=== PATIENT | male | born 1975 | race African-American/Black ===

== ENCOUNTER 2019-12-22 10:09 | Outpatient (REF) | payer OTHER, SELFPAY ==
--- NOTE | 2019-12-22 11:48 | ECG_ITS ---
Test Reason : MORBID OBESITY Blood Pressure : / mmHG Vent. Rate : 066 BPM Atrial Rate : 066 BPM P-R Int : 160 ms QRS Dur : 102 ms QT Int : 406 ms P-R-T Axes : 063 022 029 degrees QTc Int : 425 ms Normal sinus rhythm Normal ECG No previous ECGs available Referred By: Nicolas Gusman Electronically Signed By:JCARLOS LEDEZMA MD
--- NOTE | 2019-12-22 12:02 | XR_ITS ---
EXAMINATION: XR CHEST CLINICAL INFORMATION: AEP positive COMPARISON: None TECHNIQUE: 2 views of the chest were obtained. FINDINGS: Lung volumes are slightly diminished on the frontal radiograph but no focal consolidation or mass is seen. The lateral view is limited, particularly to evaluate the lower lobes because the patient's arm remained at his side. Normal pulmonary vascularity. Normal heart size. No pleural effusion or pneumothorax. Regional skeleton intact. XR/XR chest 2V IMPRESSION: Limited study but no evidence of acute pulmonary disease.
[2019-12-22 12:27] LABS: MANUAL DIFF FLAG NO
[2019-12-22 12:43] LABS: Basophils Absolute Auto 0.1 X10*3/uL (0.0-0.2); Basophils Percent Auto 0.7 % (0-2); Eosinophils Absolute Auto 0.2 X10*3/uL (0.0-0.4); Eosinophils Percent Auto 2.2 % (0-4); Hematocrit 34.6 % (42-52); Imm Gran Abs Auto 0.03 X10*3/uL (0.00-0.03); Imm Gran Pct Auto 0.3 % (0.0-0.4); Lymphocytes Absolute Auto 2.9 X10*3/uL (1.2-4.9); Lymphocytes Percent Auto 31.6 % (20-40); Mean Corpuscular HGB Conc 31.8 g/dl (31.0-36.0); Mean Corpuscular Hemoglobin 26.4 pg (27.0-33.0); Mean Platelet Volume 11.4 fL (9.4-12.4); Monocytes Absolute Auto 0.7 X10*3/uL (0.1-1.2); Monocytes Percent Auto 7.7 % (2-11); Neutrophils Absolute Auto 5.2 X10*3/uL (2.0-8.3); Neutrophils Percent Auto 57.5 % (45-73); Platelet Count 236 X10*3/uL (160-400); Red Blood Count 4.17 X10*6/uL (4.60-5.80); Red Cell Distribution Width 13.4 % (11.0-16.0); White Blood Count 9.1 X10*3/uL (4.8-10.8)
[2019-12-22 13:11] LABS: Alanine Aminotransferase 16 U/L (0-40); Albumin Level 3.8 g/dL (3.5-5.0); Alkaline Phosphatase 87 U/L (39-117); Anion Gap 11 (12-20); Aspartate Amino Transferase 13 U/L (5-37); Bilirubin Total 0.5 mg/dL (0.0-1.0); Blood Urea Nitrogen 13 mg/dL (9-16); C Reactive Protein 1.57 mg/dL (< or = 0.50); Calcium 9.1 mg/dL (8.4-10.2); Carbon Dioxide 33 mmol/L (22-29); Chloride 101 mmol/L (96-108); Cholesterol 110 mg/dL; Estimated Glomerular Filt Rate > 60; Glucose Random 146 mg/dL (60-115); HDL Cholesterol 41 mg/dL; LDL Cholesterol Calculated 51 mg/dl; Potassium 4.5 mmol/l (3.3-5.1); Sodium 140 mmol/L (135-145); Triglycerides 92 mg/dL
[2019-12-22 13:15] LABS: Estimated Average Glucose 163 mg/dL; Hemoglobin A1c % 7.3 %
[2019-12-22 13:36] LABS: Ferritin 174 ng/mL (20-250); TSH reflex Free T4 1.23 mIU/mL (0.32-4.0)
[2019-12-22 13:37] LABS: Folate 11.9 ng/mL (> or = 4.0); Vitamin B12 193 pg/mL (200-900)
[2019-12-23 14:42] LABS: H Pylori Breath Test NOT DETECTED (NOT DETECTED)
[2019-12-24 11:12] LABS: Insulin Level Total 8.4 uIU/mL
[2019-12-25 16:17] LABS: Zinc 77 mcg/dL (60-130)
[2019-12-26 13:12] LABS: Vitamin B1 9 nmol/L (8-30)
[2019-12-28 19:09] LABS: Vitamin A 55 mcg/dL (38-98)
== END 2019-12-22 10:10 | disposition home or self-care (01) ==
LOC: HO.LAB 10:09
PROVIDERS: PCP Internal Medicine; Referring Provider Surgery; Visit Provider Physician Assistant
DX: Z01.818 Encounter for other preprocedural examination (principal); E66.01 Morbid (severe) obesity due to excess calories; Z11.0 Encounter for screening for intestinal infectious diseases
CPT/HCPCS: 36415; 71046; 80053; 80061; 82607; 82728; 82746; 83013; 83036; 83525; 84425; 84443; 84590; 84630; 85025; 86140; 93005; 99211

== ENCOUNTER → 2020-01-06 08:06 | Outpatient (BNVA) | payer OTHER, SELFPAY | PROVIDERS: PCP Internal Medicine; Referring Provider Internal Medicine; Visit Provider Surgery | DX: E66.01 Morbid (severe) obesity due to excess calories (principal); Z68.41 Body mass index [BMI] 40.0-44.9, adult; K21.9 Gastro-esophageal reflux disease without esophagitis; E11.9 Type 2 diabetes mellitus without complications | CPT/HCPCS: Q3014 ==

== ENCOUNTER → 2020-01-11 07:34 | Outpatient (BNVA) | payer OTHER, SELFPAY | PROVIDERS: PCP Internal Medicine; Referring Provider Internal Medicine; Visit Provider Dietitian, Registered | DX: Z76.89 Persons encountering health services in other specified circumstances (principal) ==

== ENCOUNTER → 2020-02-01 08:20 | Outpatient (BNVA) | payer OTHER, SELFPAY | PROVIDERS: PCP Internal Medicine; Referring Provider Internal Medicine; Visit Provider Surgery | DX: E66.9 Obesity, unspecified (principal); Z68.38 Body mass index [BMI] 38.0-38.9, adult | CPT/HCPCS: Q3014 ==

== ENCOUNTER → 2020-02-02 11:17 | Outpatient (BNVA) | payer OTHER, SELFPAY | PROVIDERS: PCP Internal Medicine; Visit Provider Physician Assistant | DX: Z76.89 Persons encountering health services in other specified circumstances (principal) ==

== ENCOUNTER 2020-02-09 09:20 | Outpatient (REF) | payer OTHER, SELFPAY | END 2020-02-09 09:21 | disposition home or self-care (01) | LOC: HO.US 09:20 | PROVIDERS: Visit Provider Surgery | DX: Z13.89 Encounter for screening for other disorder (principal) ==

== ENCOUNTER → 2020-02-10 08:24 | Outpatient (BNVA) | payer OTHER, SELFPAY | PROVIDERS: PCP Internal Medicine; Visit Provider Dietitian, Registered | DX: Z76.89 Persons encountering health services in other specified circumstances (principal) ==

== ENCOUNTER 2020-02-24 08:49 | Outpatient (REF) | payer OTHER, SELFPAY ==
--- NOTE | 2020-02-24 08:51 | US_ITS ---
EXAMINATION: US COMPLETE ABDOMEN WITH LIVER ELASTOGRAPHY CLINICAL INFORMATION: Bariatric service evaluation. E66.01 COMPARISON: None. TECHNIQUE: Real-time imaging of the abdominal viscera. Noninvasive ultrasound liver fibrosis assessment is performed using Kiya ElastPQ point quantification shear wave elastography (pSWE) with a 5 MHz transducer. Multiple elastography samples are obtained. FINDINGS: PANCREAS: The pancreas is normal in size and contour and echogenicity. No pancreatic ductal distention. Portion pancreatic tail partly obscured by bowel gas. ABDOMINAL AORTA: The proximal, middle, and distal aortic segments are normal in caliber. INFERIOR VENA CAVA: Visualized portions are normal. LIVER: The liver is normal in size and smooth in contour. There is mild increased hepatic parenchymal echogenicity consistent with mild hepatic steatosis. There is no focal hepatic parenchymal lesion or intrahepatic ductal dilatation. The right lobe measures 16.7 cm in length. The left lobe measures 12.0 cm in length. Color Doppler shows portal flow towards the liver. Shear wave elastography provides a median stiffness of 1.38 m/s (reference: normal median stiffness is 0.81 - 1.22 m/s). The IQR/median stiffness to assess sampling precision is 0.2 (reference: optimal IQR/median stiffness is under 0.3). GALLBLADDER: Normal. The gallbladder is physiologically distended without evidence of stones, sludge, polyps, wall thickening or pericholecystic fluid. COMMON BILE DUCT: Normal in caliber measuring 0.4 cm in diameter. RIGHT KIDNEY: Normal. No hydronephrosis. No renal calculi or focal parenchymal lesions. The kidney measures 10.0 cm in maximum dimension. LEFT KIDNEY: Normal. No hydronephrosis. No renal calculi or focal parenchymal lesions. The kidney measures 10.5 cm in maximum dimension. SPLEEN: Normal. The spleen measures 8.6 cm in maximum dimension. FREE FLUID: None. US/US abdomen comp w elastography IMPRESSION: 1. Mild hepatic steatosis. Liver elastography measurements are consistent with a minimal risk for clinically significant liver fibrosis (METAVIR Stage F0-F1). 2. No cholelithiasis or ductal dilatation.
--- NOTE | 2020-02-24 08:51 | FL_ITS ---
EXAMINATION: XR GI SERIES CLINICAL INFORMATION: Obesity due to excessive calories. COMPARISON: None TECHNIQUE: Routine upper GI air-contrast study was performed in upright and lying position. FINDINGS: Following oral administration of thick barium and effervescent granules in upright view there is normal propagation bolus from the oral cavity through the pharynx, esophagus into stomach without any evidence of obstruction, narrowing or stricture. On placing patient supine and prone the course, caliber and peristalsis of the stomach, duodenal bulb and CT is normal. There is a mild gastroesophageal reflux without hiatal hernia. The mucosal pattern of the stomach and the duodenal bulb is normal. FLUOROSCOPY TIME: 1.6 minutes DOSE AREA PRODUCT: 54.991 uGy-m2 (microgray-meter squared) FL/FL upper GI series IMPRESSION: Mild gastroesophageal reflux without hiatal hernia.
== END 2020-02-24 08:50 | disposition home or self-care (01) ==
LOC: HO.US 08:49
PROVIDERS: PCP Internal Medicine; Visit Provider Surgery
DX: Z20.828 Contact with and (suspected) exposure to other viral communicable diseases (principal); E66.01 Morbid (severe) obesity due to excess calories; K21.9 Gastro-esophageal reflux disease without esophagitis
CPT/HCPCS: 74240; 76705; 76981

== ENCOUNTER → 2020-03-02 08:07 | Outpatient (BNVA) | payer OTHER, SELFPAY | PROVIDERS: PCP Internal Medicine; Visit Provider Surgery ==

== ENCOUNTER → 2020-03-03 08:04 | Outpatient (BNVA) | payer OTHER, SELFPAY | PROVIDERS: PCP Internal Medicine; Visit Provider Dietitian, Registered ==

== ENCOUNTER → 2020-03-04 07:25 | Outpatient (BNVA) | payer OTHER, SELFPAY | PROVIDERS: PCP Internal Medicine; Visit Provider Surgery | DX: Z13.89 Encounter for screening for other disorder (principal) | CPT/HCPCS: Q3014 ==

== ENCOUNTER → 2020-03-17 12:05 | Outpatient (BNVA) | payer OTHER, SELFPAY | PROVIDERS: PCP Internal Medicine; Visit Provider Physician Assistant ==

== ENCOUNTER → 2020-04-01 08:23 | Outpatient (BNVA) | payer OTHER, SELFPAY | PROVIDERS: PCP Internal Medicine; Visit Provider Surgery | DX: E66.9 Obesity, unspecified (principal); Z68.38 Body mass index [BMI] 38.0-38.9, adult | CPT/HCPCS: Q3014 ==

== ENCOUNTER → 2020-04-05 11:35 | Outpatient (BNVA) | payer OTHER, SELFPAY | PROVIDERS: PCP Internal Medicine; Visit Provider Physician Assistant ==

== ENCOUNTER → 2020-04-11 14:23 | Outpatient (BNVA) | payer OTHER, SELFPAY | PROVIDERS: PCP Internal Medicine; Visit Provider Physician Assistant ==

== ENCOUNTER 2020-04-22 07:59 | Outpatient (REF) | payer OTHER, SELFPAY ==
[2020-04-22 13:26] LABS: MANUAL DIFF FLAG NO
[2020-04-22 13:39] LABS: Basophils Absolute Auto 0.1 X10*3/uL (0.0-0.2); Basophils Percent Auto 0.8 % (0-2); Eosinophils Absolute Auto 0.1 X10*3/uL (0.0-0.4); Eosinophils Percent Auto 1.6 % (0-4); Hematocrit 36.6 % (42-52); Hemoglobin 11.5 g/dl (14.0-18.0); Imm Gran Abs Auto 0.02 X10*3/uL (0.00-0.03); Imm Gran Pct Auto 0.3 % (0.0-0.4); Lymphocytes Absolute Auto 2.2 X10*3/uL (1.2-4.9); Lymphocytes Percent Auto 29.3 % (20-40); Mean Corpuscular HGB Conc 31.4 g/dl (31.0-36.0); Mean Corpuscular Volume 82.6 fL (80-98); Mean Platelet Volume 12.3 fL (9.4-12.4); Monocytes Absolute Auto 0.5 X10*3/uL (0.1-1.2); Monocytes Percent Auto 6.8 % (2-11); Neutrophils Absolute Auto 4.7 X10*3/uL (2.0-8.3); Neutrophils Percent Auto 61.2 % (45-73); Platelet Count 211 X10*3/uL (160-400); Red Blood Count 4.43 X10*6/uL (4.60-5.80); Red Cell Distribution Width 14.3 % (11.0-16.0); White Blood Count 7.6 X10*3/uL (4.8-10.8)
[2020-04-22 13:46] LABS: Estimated Average Glucose 140 mg/dL; Hemoglobin A1C 150.1014 umol/L; Hemoglobin A1c % 6.5 %; INTERNATIONAL NORM RATIO 1.1 (0.9-1.1); Prothrombin Time 13.3 SEC (10.8-13.0)
[2020-04-22 13:49] LABS: Partial Thromboplastin Time 38.5 SEC (24.1-38.0)
[2020-04-22 14:04] LABS: Alanine Aminotransferase 22 U/L (0-40); Alkaline Phosphatase 93 U/L (39-117); Anion Gap 10 (12-20); Aspartate Amino Transferase 21 U/L (5-37); Bilirubin Total 0.4 mg/dL (0.0-1.0); Blood Urea Nitrogen 15 mg/dL (9-16); C Reactive Protein 1.62 mg/dL (< or = 0.50); Calcium 9.2 mg/dL (8.4-10.2); Carbon Dioxide 33 mmol/L (22-29); Chloride 105 mmol/L (96-108); Cholesterol 115 mg/dL; Estimated Glomerular Filt Rate > 60; Glucose Random 125 mg/dL (60-115); HDL Cholesterol 49 mg/dL; LDL Cholesterol Calculated 52 mg/dl; Potassium 4.1 mmol/L (3.3-5.1); Sodium 144 mmol/L (135-145); Total Protein 7.3 g/dL (6.5-8.0); Triglycerides 70 mg/dL
[2020-04-22 14:25] LABS: TSH reflex Free T4 1.45 uIU/mL (0.32-4.0)
== END 2020-04-22 08:00 | disposition home or self-care (01) ==
LOC: HO.LAB 07:59
PROVIDERS: PCP Internal Medicine; Visit Provider Surgery
DX: Z01.818 Encounter for other preprocedural examination (principal); E66.01 Morbid (severe) obesity due to excess calories; K21.9 Gastro-esophageal reflux disease without esophagitis; S58.91 Complete traumatic amputation of forearm, level unspecified; X58.XXXA Exposure to other specified factors, initial encounter; Y93.9 Activity, unspecified; Y92.9 Unspecified place or not applicable; Y99.8 Other external cause status; E11.9 Type 2 diabetes mellitus without complications; Z79.84 Long term (current) use of oral hypoglycemic drugs; Z79.899 Other long term (current) drug therapy
CPT/HCPCS: 36415; 80053; 80061; 83036; 83525; 84443; 85025; 85610; 85730; 86140; 99212

== ENCOUNTER 2020-04-28 10:15 | Inpatient (IN) | payer OTHER, SELFPAY ==
[2020-04-22 10:48] VITALS: BMI 38.5
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
[2020-04-28] VITALS (12 sets, daily range): BP systolic 109–159; BP diastolic 73–89; PULSE 74–109; RESP 12–18; TEMP 36.1–36.3; O2SAT 93–100
--- NOTE | 2020-04-28 07:48 | MHC.SHP ---
Pre-Procedural Eval Section A The patient is an INPATIENT: Yes The History & Physical has been completed within 30 days and I have reviewed it.: No Section B Chief Complaint: Obesity Details of Present Illness: obesity Relevant Family History (Specify if Yes): No Relevant Social History: None Present Medications: see Short Stay Collaborative assessment Medical History: No relevant PMH History of Previous Operations: No relevant previous surgery Allergies: Allergies Allergy/AdvReac Type Severity Reaction Status Date / Time No Known Allergies Allergy Verified 04/22/20 13:22 Review of Systems Sugical H&P ROS: Negative: Constitution, Cardiovascular, Respiratory, Neurological, Psychiatric, Hem-Onc, Allergic/Immunologic, Gastrointestinal, Genitourinary, Musculoskeletal, Integumentary, Endocrine and Eyes/Ears/Nose/Throat Exam Surgical H&P Exam: Normal: HEENT, Normal: Heart, Normal: Lungs, Normal: Extremities, Normal: Abdomen, Normal: Skin and Normal: Neurological Plan Diagnosis/Plan: Unchanged I have reviewed the history and physical and performed a pertinent physical examination on my patient. No changes have occurred unless specified.
[2020-04-28 10:08] LABS: COVID-19 Test Negative (Negative)
[2020-04-28] MEDS: Lactated Ringers 1,000 ML 999 ML IV (10:50)
[2020-04-28] MEDS: Lactated Ringers 1,000 ML 100 ML IVCONT (10:55)
--- NOTE | 2020-04-28 10:56 | PC.NURSE ---
patient has 3 fentanyl patches in white envelope sent to pharmacy. 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
--- NOTE | 2020-04-28 14:14 | P.BOP_ITS ---
Brief Operative Note Date of Service: 04/28/20 Pre-op diagnosis: Morbid obesity with comorbidities (see below) Post-op diagnosis: same (& diaphragmatic hernia) Procedure: INITIAL PATIENT BMI ON PRESENTATION AT OUR OFFICE: 42 kg/m2 LAST BMI BEFORE SURGERY: 37.8 kg/m2 COMORBIDITIES: non-insulin dependent diabetes, GERD, liver steatosis, depression, insomnia, chronic pain and opioid dependency The patient participated in an intensive weekly lifestyle intervention and exercise program during which the patient has lost between the initial office visit and the last preoperative visit 28 lbs, or 10.27% of initial actual body weight. The patient met the BMI-criteria for bariatric surgery based on the BMI on initial presentation. The patient should not be penalized for achieving such weight loss because it is not sustainable long-term without surgical intervention and it was achieved in preparation for bariatric surgery under my direction and based on my published research ([email or web address] and [email or web address]) that a 10% preoperative weight loss improves long-term weight loss after surgery and reduces perioperative complications. Insurance carriers such as [facility] have endorsed my recommendations and have included in their policies criteria to include a 10% preoperative weight loss requirement. PROCEDURE: Esophago-gastroscopy, laparoscopic repair of incarcerated diaphragmatic hernia, laparoscopic sleeve gastrectomy and laparoscopic gastropexy INDICATIONS: This is a 45 year-old male who was electively scheduled for laparoscopic, possibly open sleeve gastrectomy. The risks and complications of the procedure were discussed with the patient in advance, particularly the possibility of ; pulmonary embolism; staple line leak; bleeding; GERD; cardiac, pulmonary, or renal complications; as well as long-term problems such as insufficient weight loss, vitamin deficiency, strictures, or ulcers. The patient understood all the risks, and was in agreement to proceed with surgery. DESCRIPTION OF PROCEDURE: After informed consent was obtained from the patient, the patient was given preoperative antibiotics, and was transferred to the operating room. After successful induction of general anesthesia, pneumatic compressive devices were placed on both lower extremities. An upper endoscopy was performed next. The oropharynx and esophagus appeared to be within normal limits. There was a diaphragmatic hernia present of moderate size consistent with the findings of the preoperative upper GI. The stomach was entered. Then after all fluid and air were suctioned and the stomach was fully decompressed, the scope was withdrawn and secured in the mid esophagus. The patient was then prepped and draped in the usual sterile manner, and abdominal access was established at the right upper quadrant with the Tawanna technique. A 12 mm blunt port was inserted, and the abdomen was insufflated with CO2 to a pressure of 15 mmHg. Under direct visualization, additional ports were placed, specifically two 5 mm Versi-step ports to the left upper quadrant, and a 5 mm Versi-Step port to the right upper quadrant. 1% lidocaine plan was used to infiltrate all port sites as well as all fascia defects. Using the EndoClose suture passer device, I placed a #1 Polysorb tie across the falciform ligament in order to retract it up against the abdominal wall and prevent injury of the ligament with our instruments during the procedure. Following that, the patient was placed in a steep reverse Trendelenburg position. An additional 5 mm port was placed to the right flank for the Mediflex retractor that was used to retract the left lobe of the liver. The gastro-esophageal fat pad was opened with the ultrasonic device (Thunderbeat, Olympus) and the anterior esophagus and hiatus were exposed. The angle of His was opened with the ultrasonic device the fundus of the stomach from any diaphragmatic and splenic attachments. I then opened the gastrocolic ligament between the transverse colon and the greater curvature of the stomach with the ultrasonic device to enter the lesser sac and facilitate the ligation of the short gastric vessels. I started at a mid-point along the greater curvature and using the Thunderbeat, all short gastric vessels were divided all the way to the angle of His until the left charles was completely dissected at its entirety. I then divided the gastro-colic ligament distally to a distance of about 3-4 cm proximal to the esophagus. There was an obvious significant-sized hiatal hernia. I continued dissecting along the hiatus toward the left charles and the angle of His. I fully mobilized the fat pad that was incarcerated in the hernia. The inferior aspect of the right charles and posterior/retroesophageal dissection was not complete because the patient had a replaced left hepatic artery that made exposure in this area difficult as well as a large collateral towards the lateral part of the stomach. I continued to mobilize the esophagus into the mediastinum circumferentially. Both vagal nerves were seen and preserved. At that point, I was able to have at least 3 to 5 cm of esophagus into the abdomen. After I completely mobilized the esophagus from both the left and right charles and I had a good mobilization of the esophagus circumferentially, I closed the hernia defect with three interrupted #0 Surgidac sutures using the Endo Stitch device, all of which was placed anterior to the esophagus. The stomach was then divided transversely with two Endo HAYDEN-45 purple, three HAYDEN-60 articulating purple loads and two HAYDEN-60 orange loads using the AEON stapler and loads. Every effort was made that the gastric sleeve had a tubular shape and an even caliber throughout. Once the sleeve resection was completed, the staple line of the gastric sleeve was reinforced with Hemoclips. The resected stomach was retrieved without difficulty from the Tawanna port. A gastropexy was then performed in order to prevent postoperative GERD and partial gastric volvulus. Several interrupted 2.0 Surgidac sutures were placed between the sleeve's staple line and the previously divided greater omentum and gastro-colic ligament using the Endo-Stitch device. An upper endoscopy was performed. There was no narrowing at the GE junction. The scope was easily advanced all the way to the pylorus which was clearly vi sualized. There was no narrowing anywhere and the sleeve's caliber was even throughout. The sleeve's staple line was inspected and there was no evidence of ischemia, bleeding or dehiscence. At that point the gastroscope was withdrawn from the patient?s mouth while we were decompressing the bowel and the stomach from any remaining air. I looked into the lesser sac to see how the sleeve was situating and it was situating well. There was no bleeding from the staple line, spleen, or short gastric vessels. The Mediflex retractor was removed, and the undersurface of the liver was inspected and there was no bleeding. The patient was placed in supine position. I closed the fascial defect of the 12 mm port site with a figure of eight #1 Polysorb suture. Then 100 cc 0.25 % Marcaine plain with 10 mg of Dexamethasone were used to infiltrate the fascial closure as well as all skin incisions. At this point, the abdomen was deflated, all ports were removed under direct vision, and no bleeding was noted from any of the port sites. The skin incisions were irrigated with saline and were closed with 4-0 absorbable monofilament sutures. Steri-Strips and OpSites were used to cover all incisions. The patient was extubated and was transferred in stable condition to the recovery room for further care. I was present and performed all garsia parts of the procedure. Ms. Soto was the first aid director. There were no residents to assist with this case. Jack Gusman MD, PhD, FACS Surgeon: Nicolas Gusman MD Anesthesia: GETA, local and other (TAP block) Chief Of Internal Medicine: Karyn Soot Estimated blood loss (mL): 10 IV fluids (mL): 3,000 Urine output (mL): 0 Pathology: other (stomach) Condition: stable Disposition: PACU
--- NOTE | 2020-04-28 14:24 | PM.PNGS ---
Subjective Subjective Date of Service: 04/29/20 Interval history: Patient has mild incisional pain but was able to ambulate and use the incentive spirometer. He is tolerating 1oz of water every 30min. Physical Exam Vital Signs: Vital Signs: Last Vital Signs Temp 96.9 F 04/28/20 10:08 Pulse 74 04/28/20 10:08 Resp 18 04/28/20 10:08 BP 126/88 04/28/20 10:08 Pulse Ox 97 04/28/20 10:08 Body Mass Index 38.5 GI: Inspection: Yes normal to inspection, Yes incision (clean, dry and intact) and Yes obesity Extrem: Right lower extremity: normal to inspection (no calf tenderness) Left lower extremity: normal to inspection (no calf tenderness) Progress Note: A&P Assessment and plan (1) Obesity: Status: Acute (2) BMI 37.0-37.9, adult: Status: Acute (3) S/P laparoscopic sleeve gastrectomy: Status: Acute Assessment and Plan: 45 year old Male was admitted 08/27/19 with morbid obesity and comorbidities. Problem 1: s/p laparoscopic sleeve gastrectomy, gastropexy and diaphragmatic hernia repair Status: Doing well Plan: Check am labs, If OK, will continue phase 1 bariatric diet and discharge later today. (4) Depression: Status: Acute (5) GERD (gastroesophageal reflux disease): Status: Acute (6) Chronic pain due to injury: Status: Acute (7) Opioid dependence: Status: Acute (8) Steatosis, liver: Status: Acute (9) Diaphragmatic hernia: Status: Acute (10) Status post repair of paraesophageal diaphragmatic hernia: Status: Acute Fall Risk Details Current Medications: Current Medications Generic Name Dose Route Start Last Admin Trade Name Freq PRN Reason Stop Dose Admin Fentanyl 50 mcg 04/28/20 10:00 Fentanyl Citrate/Pf 100 Mcg/2 Ml Vial IVPUSH Q5M PRN Pain, Moderate (Pain Scale 4-6 Fentanyl 50 mcg 04/28/20 11:02 Fentanyl Citrate/Pf 100 Mcg/2 Ml Vial IVPUSH Q5M PRN Pain, Moderate (Pain Scale 4-6 Hydromorphone HCl 0.5 mg 04/28/20 10:00 Hydromorphone Hcl 0.5 Mg/0.5 Ml Syringe IVPUSH Q5M PRN Pain, Severe (Pain Scale 7-10) Hydromorphone HCl 0.5 mg 04/28/20 11:02 Hydromorphone Hcl 0.5 Mg/0.5 Ml Syringe IVPUSH Q5M PRN Pain, Severe (Pain Scale 7-10) Lactated Ringer's 1,000 mls @ 100 mls/hr 04/28/20 09:45 04/28/20 10:55 Lr IVCONT 100 mls/hr .Q10H OUMOU Administration Promethazine HCl 12.5 mg/ 50.5 mls @ 202 mls/hr 04/28/20 10:00 Sodium Chloride IV ONCE PRN Nausea and Vomiting Promethazine HCl 12.5 mg/ 50.5 mls @ 202 mls/hr 04/28/20 11:02 Sodium Chloride IV ONCE PRN Nausea and Vomiting Ondansetron HCl 4 mg 04/28/20 10:00 Ondansetron Hcl 4 Mg/2 Ml Vial IVPUSH ONCE PRN Nausea and Vomiting Ondansetron HCl 4 mg 04/28/20 11:02 Ondansetron Hcl 4 Mg/2 Ml Vial IVPUSH ONCE PRN Nausea and Vomiting Oxycodone HCl 10 mg 04/28/20 10:00 Oxycodone Hcl Immed Release 5 Mg Tablet PO ONCE PRN Pain, Mild (Pain Scale 1-3) Time Spent With Patient Time: Total time spent is greater than 50% in coordination of care (as documented) at patient's floor/unit and/or counseling patient: Time with patient: less than 15 minutes
--- NOTE | 2020-04-28 14:28 | P.DS_ITS ---
DS: Providers Provider Date of Service: 04/29/20 Date of admission: 04/28/20 10:15 Primary care physician: Abhijeet Landa I, MD DS: Diagnosis Discharge Diagnosis (1) Obesity: Status: Acute (2) BMI 37.0-37.9, adult: Status: Acute (3) S/P laparoscopic sleeve gastrectomy: Status: Acute (4) Depression: Status: Acute (5) GERD (gastroesophageal reflux disease): Status: Acute (6) Chronic pain due to injury: Status: Acute (7) Opioid dependence: Status: Acute (8) Steatosis, liver: Status: Acute (9) Diaphragmatic hernia: Status: Acute (10) Status post repair of paraesophageal diaphragmatic hernia: Status: Acute DS: Medications Discharge Medications Home Medications: Home Medications Medication Instructions Recorded Confirmed betamethasone dipropionate 0.05 % applic TOPICAL 12/17/19 04/22/20 topical cream blood sugar diagnostic #10 ea 12/17/19 04/22/20 cholecalciferol (vitamin D3) 25 50 mcg PO DAILY 12/17/19 04/22/20 mcg (1,000 unit) chewable tablet eszopiclone 3 mg tablet 3 mg PO BEDTIME PRN 12/17/19 04/22/20 fentanyl 100 mcg/hr transdermal 3 patch TOPICAL Q OTHER DAY 12/17/19 04/22/20 patch glipizide 5 mg tablet 5 mg PO BID 12/17/19 04/22/20 lancets 28 gauge #100 ea 12/17/19 04/22/20 metformin 500 mg tablet 1,000 mg PO BID 12/17/19 04/22/20 mirtazapine 45 mg tablet 45 mg PO BEDTIME 12/17/19 04/22/20 omeprazole 20 mg capsule,delayed 20 mg PO DAILY 12/17/19 04/22/20 release oxycodone 15 mg tablet 15 mg PO Q6H PRN 12/17/19 04/22/20 testosterone 1.62 % (20.25 mg/1.25 0 mg TRANSDERMAL 12/17/19 04/22/20 gram) transdermal gel packet lurasidone [Latuda] 60 mg PO QPM 04/22/20 04/22/20 Previous Rx's Medication Instructions Recorded cyanocobalamin (vitamin B-12) 1,000 mcg PO DAILY #30 cap 12/23/19 1,000 mcg capsule iron,carbonyl 65 mg-vitamin C 125 1 tab PO DAILY #30 tab 12/23/19 mg tablet,delayed release ondansetron HCl 4 mg tablet 4 mg PO Q12H #20 tab 04/21/20 pantoprazole 40 mg tablet,delayed 40 mg PO DAILY #30 tab 04/21/20 release polyethylene glycol 3350 17 gram 17 g PO DAILY #14 ea 04/21/20 oral powder packet sucralfate 100 mg/mL oral 10 ml PO BID #400 ml 04/21/20 suspension DS: Summary Time Spent with Patient Time attestation: Total time spent providing and/or coordinating discharge services: 15 minutes ADMITTING DIAGNOSIS: morbid obesity, Diabetes Mellitus, HTN, GERD, liver steatosis, depression, s/p amputation left forearm, opiod dependence DISCHARGE DIAGNOSIS: same, s/p laparoscopic sleeve gastrectomy PAST SURGICAL HISTORY: PROCEDURE: upper endoscopy, laparoscopic sleeve gastrectomy DISCHARGE SUMMARY: History of Present Illness: The patient is a 45 year-old woman with a BMI of 42.0 kg/m2 and associated co- morbidities as described above. The patient had extensive work-up,lost 27.2 lbs preoperatively and was electively scheduled for laparoscopic, possible open sleeve gastrectomy and gastropexy. Risks and complications of the surgery were discussed with the patient in advance, particularly the possibility of , pulmonary embolism, anastomotic leak, bleeding, bowel injury, GERD, cardiac, renal or pulmonary complications. The patient understood all the risks and was in agreement with the surgical plan. Hospital Course: The patient underwent an uneventful laparoscopic sleeve gastrectomy with gastropexy on the day of admission. Postoperatively, the patient was transferred to the surgical floor. The patient was on IV Acetaminophen and IV dilaudid for pain control. Patient was started on bariatric phase 1 diet POD #0. On postoperative day one, the patient was feeling well without nausea, vomiting, fevers, or tachycardia. The patient had some mild incisional pain. The abdomen was soft. On the morning of postoperative day one, the patient was continued on 1 ounce of water or ice every half hour. During the first day, the patient did fairly well, having some incisional pain, but able to ambulate adequately and to tolerate liquids well. Since the patient is doing well, we decided that the patient was ready to be discharged. The patient was given instructions to follow-up with me next week and to call my office for any fever over 101, persistent abdominal pain, nausea, vomiting, GERD, symptoms of DVT such as calf tenderness, or leg swelling, or pulmonary embolism such as chest pain or shortness of breath. The patient was also instructed to drink 40-60 ounces of liquids per day using the 1-ounce cups. The patient was given prescription for Tylenol for pain, Zofran prn for nausea, and pantoprazole and carafate. The patient was encouraged to ambulate and use the incentive spirometer. The patient was allowed to shower, but no baths, and encouraged to stay active at home. All of these instructions were given to the patient personally. All questions were answered and the patient understood all instructions, the instructions were also given to the patient in print. Discharge coordination time: Less than 30 minutes Physical Exam Vital Signs: Vital Signs: Last Vital Signs Temp 97.3 F 04/28/20 14:11 Pulse 86 04/28/20 14:11 Resp 12 04/28/20 14:11 BP 156/75 H 04/28/20 14:11 Pulse Ox 100 04/28/20 14:11 Body Mass Index 38.5 DS: Data Data Completed and Pending Pending studies at discharge: Pending at discharge 04/28/20 11:50 Surgical [PTH] Routine Labs on day of discharge: Laboratory Results - last 24 hr 04/28/20 09:40 COVID-19 (KASANDRA) Negative COVID-19 Clin Com See Note Discharge Plan Discharge Anticipated Discharge Date/Time: 04/29/20 10:21 Patient Disposition: Home Health Service Referrals: [facility] [place] [Other] (PATIENT IS RETURNING HOME WITH RESUMPTION OF SERVICES.) Abhijeet Landa MD [Primary Care Provider] - Discharge Medications: Continued pantoprazole 40 mg tablet,delayed release (DR/EC) 40 mg PO DAILY Qty: 30 RF: 2 sucralfate 100 mg/mL suspension 10 ml PO BID Qty: 400 RF: 2 ondansetron HCl [Zofran] 4 mg tablet 4 mg PO Q12H Qty: 20 RF: 0 Latuda 60 mg Tablet 60 mg PO QPM RF: 0 oxycodone 15 mg tablet 15 mg PO Q6H PRN (Reason: pain) RF: 0 fentanyl 100 mcg/hr patch 72 hour 3 patch topical Q OTHER DAY RF: 0 testosterone 1.62 % (20.25 mg/1.25 gram) gel in packet 0 mg transdermal RF: 0 eszopiclone 3 mg tablet 3 mg PO BEDTIME PRN (Reason: Anxiety) RF: 0 cholecalciferol (vitamin D3) 25 mcg (1,000 unit) tablet,chewable 50 mcg PO DAILY RF: 0 mirtazapine 45 mg tablet 45 mg PO BEDTIME RF: 0 (DME) blood sugar diagnostic Strip See Rx Instructions ea Not Applicable .MEDSUPPLY Qty: 10 RF: 0 betamethasone dipropionate 0.05 % cream topical RF: 0 (DME) lancets 28 gauge misc See Rx Instructions ea topical .MEDSUPPLY Qty: 100 RF: 0 Held glipizide 5 mg tablet 5 mg PO BID RF: 0 Hold Instructions: Do not restart without discussing with Dr Gusman metformin 500 mg tablet 1,000 mg PO BID RF: 0 Hold Instructions: Do not restart without discussing with Dr Gusman Discontinued cyanocobalamin (vitamin B-12) 1,000 mcg capsule 1,000 mcg PO DAILY Qty: 30 RF: 10 Vitron-C 65 mg iron- 125 mg tablet,delayed release (DR/EC) 1 tab PO DAILY Qty: 30 RF: 10 polyethylene glycol 3350 [Miralax] 17 gram powder in packet 17 g PO DAILY Qty: 14 RF: 0 omeprazole 20 mg capsule,delayed release(DR/EC) 20 mg PO DAILY RF: 0 Discharge Orders: Discharge Order (Routine); Ordered 04/29/20 Ordered By: Nicolas Gusman Diet: other Activity on Discharge: No heavy lifting Stand Alone Forms: Patient Portal Discharge page Activity Restrictions/Additional Instructions: No tub baths, sex or returning to work until discussed at first post op appointment. No exercise, alcohol, tobacco or illegal drug use. Continue to use incentive spirometer hourly while awake. Walk in home for 5- 10 minutes every 2 hours during the first week. Continue phase 1 diet today and start phase 2 diet tomorrow morning. Follow all instructions in the bariatric handbook and call with any questions. Care Plan Goals: weight loss Health Concerns: morbid obesity Plan of Treatment: see discharge instructions
[2020-04-28] MEDS: fentaNYL citrate/PF 100 MCG/2 ML VIAL 50 MCG IVPUSH ×3 (14:33→15:08)
[2020-04-28 15:01] LABS: Hemoglobin 11.6 g/dl (14.0-18.0)
[2020-04-28 15:25] LABS: Anion Gap 14 (12-20); Blood Urea Nitrogen 22 mg/dL (9-16); Calcium 8.7 mg/dL (8.4-10.2); Carbon Dioxide 26 mmol/L (22-29); Chloride 102 mmol/L (96-108); Creatinine Clr Calc Pharmacy 88.9; Estimated Glomerular Filt Rate > 60; Glucose Random 218 mg/dL (60-115); Potassium 4.5 mmol/L (3.3-5.1); Sodium 137 mmol/L (135-145)
[2020-04-28] MEDS: Famotidine/PF 20 MG/2 ML VIAL IVPUSH ×2 (16:08→22:16)
[2020-04-28] MEDS: Lactated Ringers 1,000 ML 125 ML IVCONT ×2 (16:13→23:55)
[2020-04-28 16:21] LABS: Glucose, Whole Blood 216 mg/dL (60-115)
[2020-04-28] MEDS: ceFAZolin Sodium/Dextrose,Iso 2 GM/50 ML PIGGYBACK IV (16:49)
--- NOTE | 2020-04-28 16:50 | PC.NURSE ---
[facility] CALLED REGARDING PT FENTANLYL PATCH , PHARMACY CONFIRMED PT TAKES FENTANYL PATCHS Q48 HOURS, PT HAS PATCHES THAT HE BROUGHT FROM HOME AND ARE STORED IN THE PHARMACY.
--- NOTE | 2020-04-28 16:53 | HE.PHANOTE ---
CONTACTED PATIENT'S OUTPATIENT PHARMACY ([facility]). CONFIRMED THAT HE USES #3 100mcg FENTANYL PATCHES AND CHANGES THEM Q48H
[2020-04-28] MEDS: fentaNYL 100 MCG PATCH.TD72 TRANSDERMA ×3 (19:45→19:46)
[2020-04-28] MEDS: hydrALAZINE HCl 20 MG/ML VIAL 10 MG IVPUSH (20:06)
[2020-04-28 20:44] LABS: Glucose, Whole Blood 201 mg/dL (60-115)
[2020-04-28] MEDS: 0.9 % Sodium Chloride Flush 3 ML SYRINGE IVFLUSH (22:16)
[2020-04-28] MEDS: Mirtazapine 15 MG TABLET 45 MG PO (22:21)
[2020-04-28] MEDS: ondansetron HCL 4 MG/2 ML VIAL IVPUSH (23:55)
[2020-04-29 03:59] VITALS: BP 154/79; PULSE 94; RESP 16; TEMP 36.4; O2SAT 95
[2020-04-29] MEDS: hydrALAZINE HCl 20 MG/ML VIAL 10 MG IVPUSH (04:15)
[2020-04-29] MEDS: Metoclopramide HCl 10 MG/2 ML VIAL IVPUSH (04:59)
[2020-04-29 05:07] LABS: MANUAL DIFF FLAG NO
[2020-04-29 05:08] LABS: Basophils Percent Auto 0.2 % (0-2); Eosinophils Percent Auto 0.1 % (0-4); Hematocrit 37.1 % (42-52); Imm Gran Abs Auto 0.07 X10*3/uL (0.00-0.03); Imm Gran Pct Auto 0.4 % (0.0-0.4); Lymphocytes Absolute Auto 2.5 X10*3/uL (1.2-4.9); Lymphocytes Percent Auto 14.9 % (20-40); Mean Corpuscular HGB Conc 32.3 g/dl (31.0-36.0); Mean Corpuscular Hemoglobin 26.3 pg (27.0-33.0); Mean Corpuscular Volume 81.2 fL (80-98); Mean Platelet Volume 11.5 fL (9.4-12.4); Monocytes Absolute Auto 1.1 X10*3/uL (0.1-1.2); Monocytes Percent Auto 6.7 % (2-11); Neutrophils Absolute Auto 13.3 X10*3/uL (2.0-8.3); Neutrophils Percent Auto 77.7 % (45-73); Platelet Count 245 X10*3/uL (160-400); Red Blood Count 4.57 X10*6/uL (4.60-5.80); White Blood Count 17.1 X10*3/uL (4.8-10.8)
[2020-04-29 05:19] VITALS: BP 136/64
[2020-04-29 06:11] LABS: Anion Gap 15 (12-20); Blood Urea Nitrogen 14 mg/dL (9-16); Calcium 9.3 mg/dL (8.4-10.2); Carbon Dioxide 25 mmol/L (22-29); Chloride 104 mmol/L (96-108); Creatinine Clr Calc Pharmacy 113.4; Estimated Glomerular Filt Rate > 60; Glucose Random 151 mg/dL (60-115); Sodium 140 mmol/L (135-145)
[2020-04-29 07:02] VITALS: BP 107/73; PULSE 101; RESP 17; TEMP 36.7; O2SAT 96
[2020-04-29 07:24] LABS: Glucose, Whole Blood 131 mg/dL (60-115)
[2020-04-29] MEDS: Lactated Ringers 1,000 ML 125 ML IVCONT (08:18)
[2020-04-29 08:23] VITALS: BP 107/73; PULSE 101
--- NOTE | 2020-04-29 09:41 | HO.POSTANES ---
Post Anesthesia Evaluation Post Anesthesia Evaluation Vital Signs: Vital Signs Temp Pulse Resp BP Pulse Ox 04/29/20 08:23 101 H 107/73 04/29/20 07:02 98.1 F 101 H 17 107/73 96 04/29/20 05:19 136/64 04/29/20 03:59 97.5 F 94 16 154/79 H 95 04/28/20 23:42 97.2 F 109 H 16 109/73 93 Anesthesia: General Endotracheal-GETA Mental Status: Awake Pain Control: Satisfactory Nausea/Vomiting: None Hydration: Adequate Anesthesia-Related Issues: No Anes. Related Issues
--- NOTE | 2020-04-29 09:45 | MHC.CM.PN ---
PATIENT LIVES WITH HIS /[facility], WHO PROVIDES TRANSPORTATION. NO DME FOR AMBULATION. HE STATES THAT HE HAS BEEN VISITED BY AN RN FOR A FEW DAYS PRIOR TO HIS ADMISSION, BUT IS UNABLE TO RECALL THE AGENCY. ASHUTOSH ([phone]) STATES THAT HE HAS BEEN ACTIVE WITH [facility]. CASE MANAGEMENT TO REACH OUT TO AGENCY TO INFORM THEM THAT PATIENT IS DISCHARGED TODAY WITH RESUMPTION OF SERVICES. ASHUTOSH IS ALSO AWARE OF THE PLAN FOR TODAY. IMM 04/29 IN CHART.
[2020-04-29 10:00] VITALS: O2SAT 96
--- NOTE | 2020-04-29 10:55 | PC.NURSE ---
THREE FENTANYL PATCHES RETRIEVED FROM PHARMACY BY THIS RN. THREE FENTANYL PATCHES RETURNED TO PATIENT AND PATIENT'S UPON DISCHARGE. PAPERWORK IN CHART.
[2020-05-02 09:30] LABS: Glucose, Whole Blood 128 mg/dL (60-115)
== END 2020-04-29 11:50 | disposition home health service (06) | DRG 620 ==
LOC: HO.SSSA 14:27 → HO.S3 14:37
PROVIDERS: Physician Assistant; Admitting Provider Surgery; PCP Internal Medicine; Visit Provider Surgery
PROC: 0DB64Z3 Excision of Stomach, Percutaneous Endoscopic Approach, Vertical (ICD-10-PCS; CPT 43845; principal; 2020-04-28 11:00)
DX: E66.01 Morbid (severe) obesity due to excess calories (principal); F11.20 Opioid dependence, uncomplicated; E11.9 Type 2 diabetes mellitus without complications; K21.9 Gastro-esophageal reflux disease without esophagitis; K44.9 Diaphragmatic hernia without obstruction or gangrene; K76.0 Fatty (change of) liver, not elsewhere classified; F32.9 Major depressive disorder, single episode, unspecified; G89.29 Other chronic pain; Z68.37 Body mass index [BMI] 37.0-37.9, adult; Z20.822 Contact with and (suspected) exposure to COVID-19; Z79.890 Hormone replacement therapy; Z79.899 Other long term (current) drug therapy
CPT/HCPCS: 36415; 80048; 82947; 85014; 85018; 85025; 86850; 86900; 87635; 88307; 88342; 99024; A4649; J0131; J0461; J0690; J1100; J1170; J2250; J2405; J2765; J3010

== ENCOUNTER → 2020-05-04 07:52 | Outpatient (BNVA) | payer OTHER, SELFPAY | PROVIDERS: PCP Internal Medicine; Visit Provider Surgery | DX: E66.9 Obesity, unspecified (principal); Z68.36 Body mass index [BMI] 36.0-36.9, adult; Z71.3 Dietary counseling and surveillance | CPT/HCPCS: 99212 ==

== ENCOUNTER → 2020-06-03 08:08 | Outpatient (BNVA) | payer OTHER, SELFPAY | PROVIDERS: PCP Internal Medicine; Visit Provider Surgery | DX: E66.9 Obesity, unspecified (principal); Z68.35 Body mass index [BMI] 35.0-35.9, adult; Z71.3 Dietary counseling and surveillance | CPT/HCPCS: 99212 ==

== ENCOUNTER → 2020-07-01 08:00 | Outpatient (BNVA) | payer OTHER, SELFPAY | PROVIDERS: PCP Internal Medicine; Visit Provider Surgery | DX: E66.9 Obesity, unspecified (principal); Z68.32 Body mass index [BMI] 32.0-32.9, adult | CPT/HCPCS: 99212 ==

== ENCOUNTER → 2020-07-28 07:49 | Outpatient (BNVA) | payer OTHER, SELFPAY | PROVIDERS: PCP Internal Medicine; Visit Provider Surgery | DX: E66.9 Obesity, unspecified (principal); Z68.32 Body mass index [BMI] 32.0-32.9, adult | CPT/HCPCS: 99212 ==

== ENCOUNTER → 2020-10-21 07:12 | Outpatient (BNVA) | payer OTHER, SELFPAY | PROVIDERS: PCP Internal Medicine; Visit Provider Surgery | CPT/HCPCS: Q3014 ==

== ENCOUNTER → 2020-11-23 08:05 | Outpatient (BNVA) | payer OTHER, SELFPAY | PROVIDERS: PCP Internal Medicine; Visit Provider Surgery | CPT/HCPCS: Q3014 ==

== ENCOUNTER → 2020-12-28 08:04 | Outpatient (BNVA) | payer OTHER, SELFPAY | PROVIDERS: PCP Internal Medicine; Visit Provider Physician Assistant | DX: Z13.89 Encounter for screening for other disorder (principal) | CPT/HCPCS: Q3014 ==

== ENCOUNTER → 2021-02-20 07:58 | Outpatient (BNVA) | payer OTHER, SELFPAY | PROVIDERS: PCP Internal Medicine; Visit Provider Physician Assistant ==

== ENCOUNTER 2021-07-18 10:49 | Outpatient (REF) | payer OTHER, SELFPAY ==
[2021-07-18 12:06] LABS: MANUAL DIFF FLAG NO
[2021-07-18 12:55] LABS: Basophils Absolute Auto 0.1 X10*3/uL (0.0-0.2); Basophils Percent Auto 1.2 % (0-2); Eosinophils Absolute Auto 0.1 X10*3/uL (0.0-0.4); Eosinophils Percent Auto 1.6 % (0-4); Hematocrit 32.5 % (42.0-52.0); Hemoglobin 10.2 g/dl (14.0-18.0); Imm Gran Abs Auto 0.01 X10*3/uL (0.00-0.03); Imm Gran Pct Auto 0.2 % (0.0-0.4); Lymphocytes Absolute Auto 2.6 X10*3/uL (1.2-4.9); Lymphocytes Percent Auto 45.5 % (20-40); Mean Corpuscular HGB Conc 31.4 g/dl (31.0-36.0); Mean Corpuscular Hemoglobin 26.1 pg (27.0-33.0); Mean Corpuscular Volume 83.1 fL (80.0-98.0); Mean Platelet Volume 11.2 fL (9.4-12.4); Monocytes Absolute Auto 0.4 X10*3/uL (0.1-1.2); Monocytes Percent Auto 6.8 % (2-11); Neutrophils Absolute Auto 2.6 x10*3/uL (2.0-8.3); Neutrophils Percent Auto 44.7 % (45-73); Platelet Count 173 X10*3/uL (160-400); Red Blood Count 3.91 X10*6/uL (4.60-5.80); Red Cell Distribution Width 14.4 % (11.0-16.0); White Blood Count 5.8 X10*3/uL (4.8-10.8)
[2021-07-18 13:09] LABS: Estimated Average Glucose 105 mg/dL; Hemoglobin A1c % 5.3 %
[2021-07-18 13:26] LABS: Alanine Aminotransferase 57 U/L (0-40); Albumin Level 3.9 g/dL (3.5-5.0); Alkaline Phosphatase 69 U/L (39-117); Anion Gap 12 (12-20); Aspartate Amino Transferase 27 U/L (5-37); Bilirubin Total 0.6 mg/dL (0.0-1.0); Blood Urea Nitrogen 9 mg/dL (9-16); C Reactive Protein 0.38 mg/dL (< or = 0.50); Carbon Dioxide 30 mmol/L (22-29); Chloride 105 mmol/L (96-108); Cholesterol 98 mg/dL; Estimated Glomerular Filt Rate > 60; Glucose Random 104 mg/dL (60-115); HDL Cholesterol 54 mg/dL; Iron 61 mcg/dL (45-160); LDL Cholesterol Calculated 38 mg/dl; Percent Iron Saturation 23 % (15-50); Potassium 4.7 mmol/L (3.3-5.1); Sodium 142 mmol/L (135-145); Total Iron Binding Capacity 260 mcg/dL (228-428); Total Protein 6.7 g/dL (6.5-8.0); Triglycerides 32 mg/dL; Unsaturated Iron Binding 199 ug/dL
[2021-07-18 13:49] LABS: Ferritin 240 ng/mL (20-250); Insulin 9 uU/mL (2-29); TSH reflex Free T4 0.99 uIU/mL (0.32-4.0); Vitamin D 25-OH Total 62.5 ng/mL (>30)
[2021-07-18 14:14] LABS: Folate > 20.0 ng/mL (> or = 4.0); Vitamin B12 774 pg/mL (200-900)
[2021-07-19 15:35] LABS: Calcium (PTHI) 9.3 mg/dL (8.6-10.3); PTHI 16 pg/mL (16-77)
[2021-07-22 01:52] LABS: Zinc 91 mcg/dL (60-130)
[2021-07-24 12:26] LABS: Vitamin B1 41 nmol/L (8-30)
[2021-07-25 20:06] LABS: Vitamin A 41 mcg/dL (38-98)
== END 2021-07-18 10:50 | disposition home or self-care (01) ==
LOC: HO.LAB 10:49
PROVIDERS: PCP Internal Medicine; Visit Provider Physician Assistant
DX: E66.3 Overweight (principal); Z68.24 Body mass index [BMI] 24.0-24.9, adult; L98.7 Excessive and redundant skin and subcutaneous tissue; M79.3 Panniculitis, unspecified; Z98.84 Bariatric surgery status; Z98.890 Other specified postprocedural states; Z87.19 Personal history of other diseases of the digestive system; Z71.3 Dietary counseling and surveillance
CPT/HCPCS: 36415; 80053; 80061; 82306; 82607; 82728; 82746; 83036; 83525; 83540; 83970; 84425; 84443; 84590; 84630; 85025; 86140; 99212

== ENCOUNTER → 2021-10-02 08:11 | Outpatient (BNVA) | payer OTHER, SELFPAY | PROVIDERS: PCP Internal Medicine; Visit Provider Surgery | DX: M79.3 Panniculitis, unspecified (principal); L98.7 Excessive and redundant skin and subcutaneous tissue; Z98.84 Bariatric surgery status | CPT/HCPCS: Q3014 ==

== ENCOUNTER → 2021-11-10 09:40 | Outpatient (BNVA) | payer OTHER, SELFPAY | PROVIDERS: PCP Internal Medicine; Visit Provider Surgery | DX: M79.3 Panniculitis, unspecified (principal); L98.7 Excessive and redundant skin and subcutaneous tissue; K91.2 Postsurgical malabsorption, not elsewhere classified; Z90.3 Acquired absence of stomach [part of] | CPT/HCPCS: Q3014 ==

== ENCOUNTER 2021-11-14 05:50 | Day surgery (SDC) | payer OTHER, SELFPAY ==
[2021-11-10 10:00] LABS: MANUAL DIFF FLAG NO
[2021-11-10 10:36] LABS: Basophils Absolute Auto 0.1 X10*3/uL (0.0-0.2); Basophils Percent Auto 1.2 % (0-2); Eosinophils Absolute Auto 0.1 X10*3/uL (0.0-0.4); Eosinophils Percent Auto 2.6 % (0-4); Hematocrit 35.5 % (42.0-52.0); Hemoglobin 11.3 g/dl (14.0-18.0); Imm Gran Abs Auto 0.01 X10*3/uL (0.00-0.03); Imm Gran Pct Auto 0.2 % (0.0-0.4); Lymphocytes Absolute Auto 2.4 X10*3/uL (1.2-4.9); Lymphocytes Percent Auto 47.4 % (20-40); Mean Corpuscular HGB Conc 31.8 g/dl (31.0-36.0); Mean Corpuscular Hemoglobin 27.2 pg (27.0-33.0); Mean Corpuscular Volume 85.5 fL (80.0-98.0); Mean Platelet Volume 11.4 fL (9.4-12.4); Monocytes Absolute Auto 0.3 X10*3/uL (0.1-1.2); Monocytes Percent Auto 5.9 % (2-11); Neutrophils Absolute Auto 2.2 x10*3/uL (2.0-8.3); Neutrophils Percent Auto 42.7 % (45-73); Platelet Count 158 X10*3/uL (160-400); Red Blood Count 4.15 X10*6/uL (4.60-5.80); Red Cell Distribution Width 13.8 % (11.0-16.0); White Blood Count 5.1 X10*3/uL (4.8-10.8)
[2021-11-10 10:58] LABS: Alanine Aminotransferase 12 U/L (0-40); Albumin Level 4.2 g/dL (3.5-5.0); Alkaline Phosphatase 60 U/L (39-117); Anion Gap 15 (12-20); Aspartate Amino Transferase 15 U/L (5-37); Bilirubin Total 0.4 mg/dL (0.0-1.0); Blood Urea Nitrogen 10 mg/dL (9-16); Calcium 9.4 mg/dL (8.4-10.2); Carbon Dioxide 29 mmol/L (22-29); Chloride 105 mmol/L (96-108); Estimated Glomerular Filt Rate > 60; Glucose Random 91 mg/dL (60-115); Potassium 4.2 mmol/L (3.3-5.1); Sodium 145 mmol/L (135-145); Total Protein 7.4 g/dL (6.5-8.0)
[2021-11-10 11:07] LABS: Estimated Average Glucose 91 mg/dL; Hemoglobin A1c % 4.8 %
[2021-11-10 11:20] LABS: INTERNATIONAL NORM RATIO 1.2 (0.9-1.1); Prothrombin Time 13.3 SEC (10.0-13.1)
[2021-11-10 11:23] LABS: Partial Thromboplastin Time 37.6 SEC (26.0-36.4)
[2021-11-10 12:38] VITALS: BMI 25.0
--- NOTE | 2021-11-10 22:46 | MHC.SHP ---
Pre-Procedural Eval Section A Date of Service: 11/10/21 The patient is an INPATIENT: No The History & Physical has been completed within 30 days and I have reviewed it.: Yes Section B Chief Complaint: Panniculitis, unspecified Relevant Family History (Specify if Yes): No Relevant Social History: None Present Medications: None Medical History: No relevant PMH History of Previous Operations: Relevant previous surgery/procedure and date(s) (sleeve gastrectomy) Allergies: Allergies Allergy/AdvReac Type Severity Reaction Status Date / Time No Known Allergies Allergy Verified 11/10/21 12:56 Review of Systems Sugical H&P ROS: Negative: Constitution, Cardiovascular, Respiratory, Neurological, Psychiatric, Hem-Onc, Allergic/Immunologic, Gastrointestinal, Genitourinary, Musculoskeletal, Integumentary, Endocrine and Eyes/Ears/Nose/Throat Exam Surgical H&P Exam: Normal: HEENT, Normal: Heart, Normal: Lungs, Normal: Extremities, Normal: Abdomen, Normal: Skin and Normal: Neurological Plan Diagnosis/Plan: Unchanged I have reviewed the history and physical and performed a pertinent physical examination on my patient. No changes have occurred unless specified.
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
[2021-11-13 14:51] LABS: COVID-19 Test Negative (Negative); IDNOW Serial# 16C4AD1C
[2021-11-14] VITALS (16 sets, daily range): BP systolic 113–138; BP diastolic 75–98; PULSE 50–85; RESP 7–18; TEMP 36.2–36.6; O2SAT 93–100
[2021-11-14] MEDS: Lactated Ringers 1,000 ML 100 ML IVCONT (06:30)
--- NOTE | 2021-11-14 06:33 | PC.NURSE ---
patient has fentanyl patch to right deltoid that was placed hs. verified by author and tim childs rn. documentation on back of preop nursing record with signatures from both nurses.
[2021-11-14] MEDS: Lactated Ringers 1,000 ML 80 ML IVCONT (06:36)
--- NOTE | 2021-11-14 07:59 | P.BOP_ITS ---
Brief Operative Note Date of Service: 11/14/21 Pre-op diagnosis: Panniculitis Post-op diagnosis: same Procedure: PROCEDURE: Panniculectomy with umbilical transposition and bilateral subcutaneous fat flaps INDICATION: This a 46 year old male who underwent laparoscopic sleeve gastrectomy on 04/28/2020. She had an excellent result achieving a BMI of 25.2 kg/m2 with a total weight loss of 109.6lbs, or 40.2% of her TBWL. As a result, he has developed panniculitis which has not resolved despite continuous use of clotrimazole ointment as well as skin irritation. On exam he has extreme skin laxity due to massive weight loss, with the abdominal pannus completely hanging 4cm below the pubis. Panniculectomy was recommended. We discussed the two options for the panniculectomy of using a combined vertical and horizontal incisions or just a horizontal (bikini) incision. It was my recommendation to do only horizontal incision based on her body habitus and skin laxity. The patient agreed with this. Risks and complications were discussed with the patient including bleeding, infection, umbilical loss, flap necrosis, asymmetry, dehiscence, seroma, VTE. The patient understood the risks and was in agreement to proceed with surgery. PROCEDURE: The incisions were appropriately marked at the preop area with the patient standing and laying down. After induction of general anesthesia a Cervantes catheter and pneumatic compression devices were placed. The patient was prepped and draped in the usual sterile manner and the incisions were marked again and confirmed. The skin was infiltrated with lidocaine and epinephrine. The #10 blade scalpel was used for the large incisions and the #15 blade scalpel for the umbilicus. Cautery was used to divide the subcutaneous tissues until the fascia was identified. Then I used the Thunderbeat (Olympus) to separate the pannus from the fascia. The inferior incision was made initially and I mobilized the flap for a several centimeters cephalad to the umbilicus. The umbilicus was incised circumferentially and detached from the surrounding tissues all the way to the fascia while its stalk was preserved. With the patient in reflex position I confirmed that the skin flaps were appropriate and would allow for the tissues to come together with reasonable tension. At that point a horizontal incision was made 4 cm above the umbilicus. #10 blade was used for the skin, cautery for the dermis and the Thunderbeat for the remaining tissues. A subcutaneous fat flap was raised from the upper skin flap in order to fill the space under the skin and support the closure of the two flaps. In addition the inferior flap was mobilized caudally for a few centimeters to create a space for the subcutaneous fat flap as well as relieve tension from the closure. A circumferential incision was made at the area where the umbilicus would be re-implanted. The umbilicus was appropriately oriented and was delivered through the defect and was secured in place with a [place]. No bleeding was noted anywhere. One SERAFIN drain was placed from the left corner of the horizontal incision across the wound and was secured in place with a silk suture. A total of 14ml of Zynrelef was applied on top of the fascia and under the roth bcutaneous fat flaps. The subcutaneous fat flap was secured under the inferior flap with several interrupted 3.0 Monocryl sutures. The two flaps were brought together and were attached at the midline of the horizontal incision with a #3.0 Monocryl suture. At that point the umbilicus was properly oriented and was re-approximated to the skin with 8 interrupted 3.0 Monocryl sutures. In a similar fashion the skin flaps were re-approximated with multiple 3.0 Monocryl sutures. The skin was closed in all incisions and umbilicus with 4.0 Monocryl sutures. Steri-strips, xeroform gauzes and gauzes were used to cover the incisions. An abdominal binder was also placed. The was awaken and was transferred to the recover room in a stable condition. I was present and performed the entire procedure. Donald Shaffer was the events administrative assistant. Jack Gusman MD, PhD, FACS Surgeon: Nicolas Gusman MD Surgeon: Nicolas Gusman MD Anesthesia: GETA, local and other (14ml of Zynrelef) Was an Small [employer] I Assembler used for this Procedure?: No Small Products I Assembler: Nemesio Shaffer Estimated blood loss (mL): 10 IV fluids (mL): 2,500 Urine output (mL): 0 (No Cervantes to record) Pathology: other (Abdominal pannus) Condition: stable Disposition: PACU
--- NOTE | 2021-11-15 12:30 | P.F2F_ITS ---
Service Date Service Date: 11/15/21 Encounter Date of encounter: 11/15/21 Reasons for Services Signs and symptoms assessed: Signs and symptoms assessed: s/p panniculectomy Reason for nursing home: wound care and other (drain care) Overseeing Care: Nicolas Gusman Homebound: Leaving the home is medically contraindicated at this time without the asist of a device and/or another person due th the listed conditions above and below. Reason homebound: non-weight bearing Certification: Based on the above findings, I certify that this patient is confined to the home and needs intermittent nursing home care, physical therapy and/or speech therapy, or continues to need occupational therapy. The patient is under my care, and I have initiated the establishment of the plan of care. The patient will be followed by a physician who will periodically review the plan of care.
== END 2021-11-14 18:11 | disposition home or self-care (01) ==
PROVIDERS: Physician Assistant Surgical; Visit Provider Surgery
PROC: 0JB80ZZ Excision of Abdomen Subcutaneous Tissue and Fascia, Open Approach (ICD-10-PCS; CPT 15830; principal; 2021-11-14 08:10)
DX: M79.3 Panniculitis, unspecified (principal); L98.7 Excessive and redundant skin and subcutaneous tissue; K91.2 Postsurgical malabsorption, not elsewhere classified; Z98.84 Bariatric surgery status; Z90.3 Acquired absence of stomach [part of]; E66.01 Morbid (severe) obesity due to excess calories; E11.9 Type 2 diabetes mellitus without complications; K21.9 Gastro-esophageal reflux disease without esophagitis; K76.0 Fatty (change of) liver, not elsewhere classified; F32.A Depression, unspecified; Z79.899 Other long term (current) drug therapy; Z89.212 Acquired absence of left upper limb below elbow
CPT/HCPCS: 15830; 15847; 36415; 80053; 83036; 85025; 85610; 85730; 86850; 86900; 86901; 87635; 88304; C9088; J0131; J0690; J1100; J1170; J2250; J2405; J3010; J3370

== ENCOUNTER → 2022-02-26 09:20 | Outpatient (BNVA) | payer OTHER, SELFPAY | PROVIDERS: PCP Internal Medicine; Visit Provider Physician Assistant Surgical | DX: Z98.890 Other specified postprocedural states (principal) | CPT/HCPCS: 99212 ==